=== PATIENT | male | born 1970 | race Caucasian/White ===

== ENCOUNTER 2022-11-22 21:08 | Emergency (ER) | payer OTHER ==
[~2022-11-22] VITALS: Ht 182.9 cm; Wt 100.0 kg
[2022-11-22 21:15] VITALS: BP 142/75
--- NOTE | 2022-11-22 21:27 | NUR ---
PT to bed 3
--- NOTE | 2022-11-22 21:29 | NUR ---
Patient resting in bed, A/Ox4, chest rise and fall symmetrical, no s/s of distress, patient on monitor.
[2022-11-22 22:13] LABS: BASOPHILS % (AUTO) 0.4 % (0.0-2.0); EOSINOPHILS # (AUTO) 0.1 K/uL (0-0.4); HEMATOCRIT 44.9 % (36-52); HEMOGLOBIN 15.1 g/dL (12.0-18.0); LYMPHOCYTES # (AUTO) 1.8 K/uL (2.0-11.5); MEAN CORPUSCULAR HEMOGLOBIN 31 pg (27-31); MEAN CORPUSCULAR HGB CONC 34 g/dL (33-37); MEAN CORPUSCULAR VOLUME 90.7 fL (80-94); MONOCYTES % (AUTO) 9.4 % (1.7-9.3); NEUTROPHILS # (AUTO) 7.3 K/uL (1.8-7.7); NEUTROPHILS % (AUTO) 71.2 % (42.2-75.2); PLATELET COUNT (AUTO) 230 K/uL (140-450); RED BLOOD CELL COUNT(AUTO) 4.95 MIL/uL (4.20-6.10); RED CELL DISTRIBUTION WIDTH 13.2 % (11.6-13.7); WHITE BLOOD COUNT (AUTO) 10.3 K/uL (4.8-10.8)
[2022-11-22 22:29] LABS: ALBUMIN 3.9 g/dL (3.4-5.0); ANION GAP 9.5 (8-16); CARBON DIOXIDE 30.6 mmol/L (21-32); CREATININE 1.1 mg/dL (0.6-1.3); POTASSIUM 4.1 mmol/L (3.5-5.1)
--- NOTE | 2022-11-22 22:50 | NUR ---
Patient resting in bed, A/Ox4, chest rise and fall symmetrical, no s/s of distress, patient on monitor.
[2022-11-22] MEDS ORDERED: KETOROLAC 15 MG/ML VIAL IVP ONE (23:00)
--- NOTE | 2022-11-22 23:15 | NUR ---
Patient given warm blanket.
--- NOTE | 2022-11-22 23:17 | NUR ---
Patient resting in bed, A/Ox4, chest rise and fall symmetrical, no s/s of distress, patient on monitor.
--- NOTE | 2022-11-23 01:00 | NUR ---
Patient resting in bed, A/Ox4, chest rise and fall symmetrical, no s/s of distress, patient on monitor.
--- NOTE | 2022-11-23 03:02 | NUR ---
Patient resting in bed, A/Ox4, chest rise and fall symmetrical, no s/s of distress, patient on monitor.
--- NOTE | 2022-11-23 05:11 | NUR ---
Patient resting in bed, A/Ox4, chest rise and fall symmetrical, no s/s of distress, patient on monitor.
[2022-11-23] MEDS ORDERED: LID5T TP (05:36)
[2022-11-23] MEDS ORDERED: METH-1681 PO (05:36)
[2022-11-23] MEDS ORDERED: IBUP-2213 PO (05:36)
[2022-11-23 05:40] VITALS: BP 112/65
== END 2022-11-23 05:40 | disposition home or self-care (01) ==
LOC: MED 21:08
DX: J98.11 Atelectasis (principal); F17.290 Nicotine dependence, other tobacco product, uncomplicated; E78.5 Hyperlipidemia, unspecified; Z88.0 Allergy status to penicillin; Z79.899 Other long term (current) drug therapy; Z98.890 Other specified postprocedural states
CPT/HCPCS: 36415; 71045; 71275; 80053; 83880; 84484; 85025; 96374; 99285; J1885; Q0092; Q9967

== ENCOUNTER 2023-07-01 20:24 | Emergency (ER) | payer OTHER ==
[~2023-07-01] VITALS: Ht 182.9 cm; Wt 99.8 kg
[~2023-07-01 20:24] MED LIST: IBUP-2213 PO; LID5T TP; METH-1681 PO
[2023-07-01 20:42] VITALS: BP 143/89; PULSE 112; RESP 16; TEMP 98.1; O2SAT 98
[2023-07-01 23:00] VITALS: BP 119/80; PULSE 89; RESP 16; TEMP 98.1; O2SAT 98
== END 2023-07-01 23:00 | disposition home or self-care (01) ==
LOC: MED 20:24
DX: S93.402A Sprain of unspecified ligament of left ankle, initial encounter (principal); Z79.899 Other long term (current) drug therapy; Z79.1 Long term (current) use of non-steroidal anti-inflammatories (NSAID); Z88.0 Allergy status to penicillin; W11.XXXA Fall on and from ladder, initial encounter; Y93.89 Activity, other specified; Y92.89 Other specified places as the place of occurrence of the external cause; Y99.8 Other external cause status
CPT/HCPCS: 73630; 99283

== ENCOUNTER 2024-05-01 15:49 | Emergency (ER) | payer OTHER ==
[~2024-05-01] VITALS: Ht 182.9 cm; Wt 98.4 kg
[2024-05-01 16:03] VITALS: BP 135/91; PULSE 93; RESP 16; TEMP 97.8; O2SAT 94
[2024-05-01] MEDS: LIDOCAINE 5% 1 EA PATCH TP ONE (16:25)
[2024-05-01] MEDS: KETOROLAC 30 MG/ML VIAL IM ONE (16:28)
[2024-05-01] MEDS ORDERED: CYCL-711 PO (17:58)
[2024-05-01] MEDS ORDERED: LID5T TP (17:58)
[2024-05-01] MEDS ORDERED: NAPR-337 PO (17:58)
== END 2024-05-01 18:12 | disposition home or self-care (01) ==
LOC: MED 15:49
DX: M54.50 Low back pain, unspecified (principal); Z79.1 Long term (current) use of non-steroidal anti-inflammatories (NSAID); Z79.899 Other long term (current) drug therapy; Z88.0 Allergy status to penicillin; W17.89XA Other fall from one level to another, initial encounter; Y93.E9 Activity, other interior property and clothing maintenance; Y92.098 Other place in other non-institutional residence as the place of occurrence of the external cause; Y99.8 Other external cause status
CPT/HCPCS: 72110; 96372; 99283; J1885

== ENCOUNTER 2024-05-04 10:33 | Emergency (ER) | payer OTHER ==
[~2024-05-04] VITALS: Ht 182.9 cm; Wt 98.4 kg
[~2024-05-04 10:33] MED LIST changes: +CYCL-711 PO; +NAPR-337 PO
[2024-05-04 10:39] VITALS: BP 141/93; PULSE 91; RESP 19; TEMP 97.7; O2SAT 97
[2024-05-04] MEDS ORDERED: ACET-8905 PO (11:08)
[2024-05-04] MEDS ORDERED: IBUP-2213 PO (11:08)
[2024-05-04] MEDS: MORPHINE SULFATE 4 MG/ML SYR IM ONE (11:10)
[2024-05-04 11:24] VITALS: BP 131/64; PULSE 89; RESP 19; TEMP 98.2; O2SAT 99
== END 2024-05-04 11:26 | disposition home or self-care (01) ==
LOC: MED 10:33
DX: M54.9 Dorsalgia, unspecified (principal); Z79.1 Long term (current) use of non-steroidal anti-inflammatories (NSAID); Z79.899 Other long term (current) drug therapy; Z88.0 Allergy status to penicillin
CPT/HCPCS: 81002; 96372; 99283; J2270